=== PATIENT | female | born 1995 | race Caucasian/White ===

== ENCOUNTER 2017-06-19 17:39 | Emergency (ER) | payer MEDICAID, OTHER ==
[~2017-06-19] VITALS: Ht 177.8 cm; Wt 58.1 kg
[2017-06-19] MEDS ORDERED: ZOFRAN ODT4 MG ORAL (18:16)
[2017-06-19] MEDS ORDERED: AMITRIPTYLINE H75 MG ORAL (18:16)
[2017-06-19] MEDS ORDERED: SERTRALINE HCL25 MG ORAL (18:16)
[2017-06-19] MEDS ORDERED: Capsaicin 0.075% Cream TOPIC ONE (18:45)
[2017-06-19 18:57] LABS: APPEARANCE,URINE CLEAR; BILIRUBIN, URINE NEGATIVE (NEGATIVE); GLUCOSE, URINE (UA) NEGATIVE (NEGATIVE); KETONES,URINE 3+ (NEGATIVE); LEUKOCYTE ESTERASE ,URINE NEGATIVE (NEGATIVE); NITRITE,URINE NEGATIVE (NEGATIVE); PH,URINE 6 (4.5-8.0); PROTEIN,URINE 2+ (NEGATIVE); UROBILINOGEN,URINE NORMAL MG/DL (0.0-1.0)
[2017-06-19 19:10] LABS: COLOR,URINE YELLOW
[2017-06-19 19:35] VITALS: BP 115/68
--- NOTE | 2017-06-19 20:59 | Emergency Room Report ---
History of Present Illness General Chief Complaint: Vomiting Source: Patient Present Illness HPI She has a history of cyclic vomiting syndrome. She is from [place] and yesterday had an exacerbation of her cyclic vomiting syndrome. She has seen multiple specialists to include a contractor [employer]. She has Zofran. She did go to an urgent care and was given a benzodiazepine and fluids. He does use marijuana regularly. However, she states that her contractor [employer] does not believe she has cannabis hyperemesis syndrome. She states most ER doctors think she has cannabis hyperemesis syndrome. Regardless, she states that she had been feeling better until a couple hours ago when she started vomiting again. She states that capsaicin cream has helps for her previously. She also is requesting more IV fluids because she states that this typically helps her immensely. She denies recent illness. She has no other complaints. Allergies: Coded Allergies: BANANA (Verified Allergy, Unknown, 06/19/17) Patient History Past Medical History: see triage record, other - cyclic vomiting syndrome Social History: Reports: alcohol use, drug use; Denies: smoking Last Menstrual Period: IUD Reviewed Nursing Documentation: PMH: Agreed; PSxH: Agreed Nursing Documentation-PMH Hx Gastrointestinal Problems: Yes - cyclic vomiting syndrome Review of Systems All Other Systems: negative except mentioned in HPI Physical Exam Vital Signs Date Time Temp Pulse Resp B/P (MAP) Pulse Ox O2 Delivery O2 Flow Rate FiO2 06/19/17 18:10 98.2 71 16 104/65 99 Room Air 98.2 Sp02 EP Interpretation: reviewed, normal General Appearance: no apparent distress, alert, GCS 15, non-toxic Head: normocephalic, atraumatic Eyes: bilateral eye normal inspection, bilateral eye PERRL ENT: hearing grossly normal, normal pharynx, no angioedema, normal voice Neck: full range of motion, supple/symm/no masses Respiratory: chest non-tender, lungs clear, normal breath sounds, speaking full sentences Cardiovascular #1: regular rate, rhythm, no edema Gastrointestinal: normal bowel sounds, non tender, soft, non-distended, no guarding, no rebound Rectal: deferred Musculoskeletal: back normal, gait/station normal, normal range of motion, non- tender Neurologic: alert, oriented x3, responsive, motor strength/tone normal, sensory intact, speech normal Psychiatric: judgement/insight normal, memory normal, mood/affect normal, no suicidal/homicidal ideation Skin: normal color, no rash, warm/dry, well hydrated Medical Decision Making Diagnostic Impression: Primary Impression: Cyclic vomiting syndrome Additional Impression: UTI (urinary tract infection) ER Course The patient has known cyclic vomiting syndrome. I suspect she has cannabis hyperemesis syndrome. Regardless, the patient has multiple medications to help her with her cyclic vomiting. I did apply capsaicin cream to her abdomen and she had significant relief of her symptoms. She had no vomiting here in the emergency department. She is also given 2 L of IV fluids. She felt much better and was comfortable with discharge. The patient's urinalysis had findings consistent with possible early urinary tract infection. I will go ahead and treat the patient with a course of antibiotics. Overall her evaluation is benign and reassuring. She is given close return precautions and follow-up instructions. Laboratory Tests Test 06/19/17 18:25 Urine Color Yellow Urine Appearance Clear Urine pH 6 (4.5-8.0) Urine Specific [place] 1.020 (1.005-1.035) Urine Protein 2+ (NEGATIVE) H Urine Glucose (UA) Negative (NEGATIVE) Urine Ketones 3+ (NEGATIVE) H Urine Occult Blood 3+ (NEGATIVE) H Urine Nitrite Negative (NEGATIVE) Urine Bilirubin Negative (NEGATIVE) Urine Urobilinogen Normal MG/DL (0.0-1.0) Urine Leukocyte Esterase Negative (NEGATIVE) Urine RBC 2-4 /HPF (0 - 2) H Urine WBC 5-10 /HPF (0 - 2) H Urine Squamous Epithelial Cells Few /LPF (NONE/OCC) Urine Bacteria Occasional /HPF (NONE) Urine HCG, Qualitative Negative (NEGATIVE) Last Vital Signs Date Time Temp Pulse Resp B/P (MAP) Pulse Ox O2 Delivery O2 Flow Rate FiO2 06/19/17 18:10 98.2 71 16 104/65 99 Room Air 98.2 Status: improved Disposition: HOME, SELF-CARE Condition: Improved Referrals: NON PHYSICIAN (PCP) Patient Instructions: Nausea and Vomiting, Adult MARCO GRADY D.O. Jun 19, 2017 20:59
[2017-06-19] MEDS ORDERED: NITROFURANTOIN100 M2 ORAL (21:15)
[2017-06-19 21:40] VITALS: BP 110/67
[2017-06-19 21:43] VITALS: BP 110/67
== END 2017-06-19 21:43 | disposition home or self-care (01) ==
LOC: EMR 18:54
DX: G43.A0 Cyclical vomiting, in migraine, not intractable (principal); N39.0 Urinary tract infection, site not specified; Z91.018 Allergy to other foods
CPT/HCPCS: 81003; 81025; 96361; 96374; 99284